=== PATIENT | male | born 1945 | race Two or more races ===

== ENCOUNTER 2018-02-28 07:54 | Outpatient (CLI) | payer OTHER | END 2018-02-28 08:01 | disposition home or self-care (01) | LOC: SONOGRAMA 07:54 | DX: B18.2 Chronic viral hepatitis C (principal) ==

== ENCOUNTER 2019-08-05 10:28 | Inpatient (IN) | payer OTHER ==
[~2019-08-05] VITALS: Ht 167.6 cm; Wt 81.2 kg
--- NOTE | 2019-08-05 11:32 | NUR ---
PTE REFIERE ULCERA EN PIE DERECHO SE JEOL S/V YS EJUBIAC EN AREA DE OBSERVACION
--- NOTE | 2019-08-05 14:02 | NUR ---
PACIENTE ALERTA Y ORIENTADO POR RUBÉN ESFERAS. MS.TAYLOR ORIENTA A PACIENTE SOBRE PROCEDIMIENTO Y TX, REFIERE ENTENDER. EXTRAE MUESTRAS DE LABORATORIO CON MEDIDAS ASEPTICAS Y ADMINISTRA MEDICAMENTOS KIM ORDEN MEDICA.
--- NOTE | 2019-08-05 16:14 | NUR ---
PT ALERTA Y ORIENTADO X3 ESFERAS SE RECIBE EN [place] CON BARANDAS ELEVADAS Y FRENOS COLOCADOS. HEPARIN LOCK E IVLFUIDS PATENTES. PT TOLERA TX. PENDIENTE VISITA DE INTERNISTA.
[2019-08-06] MEDS ORDERED: AMLODIPINE BESY10 MG PO (07:43)
[2019-08-06] MEDS ORDERED: GLIMEPIRIDE2 M1 PO (07:43)
[2019-08-06] MEDS ORDERED: ADULT LOW DOSE81 M1 PO (07:43)
[2019-08-06] MEDS ORDERED: ATORVASTATIN CA20 MG PO (07:43)
[2019-08-06] MEDS ORDERED: LOSARTAN POTAS100 MG PO (07:44)
[2019-08-06] MEDS ORDERED: TOPROL XL100 M1 PO (07:44)
[2019-08-06] MEDS ORDERED: JANUMET 50-1,01 EACH PO (07:44)
[2019-08-06] MEDS ORDERED: ANTIFUNGAL113 GM (07:44)
[2019-08-14] MEDS ORDERED: LOSARTAN POTAS100 MG PO (08:05)
[2019-08-14] MEDS ORDERED: ATORVASTATIN CA20 MG PO (08:05)
[2019-08-14] MEDS ORDERED: METFORMIN HCL500 MG PO (08:05)
[2019-08-14] MEDS ORDERED: ADULT LOW DOSE81 M1 PO (08:05)
== END 2019-08-14 11:20 | disposition home or self-care (01) | DRG 623 ==
LOC: ER 10:28 → MEDI 20:36 → SEC-K 20:36 → MEDI 22:15 → MEDJ 22:15 → SURH 08-08 21:47 → MEDJ 08-12 11:49 → MEDI 08-12 11:49
PROVIDERS: ADMIT Internal Medicine
PROC: 0JBQ0ZZ Excision of Right Foot Subcutaneous Tissue and Fascia, Open Approach (ICD-10-PCS; principal; 2019-08-06)
PROC: BQ3LZZZ Magnetic Resonance Imaging (MRI) of Right Foot (ICD-10-PCS; 2019-08-07)
PROC: 0JBQ0ZZ Excision of Right Foot Subcutaneous Tissue and Fascia, Open Approach (ICD-10-PCS; 2019-08-09)
PROC: 0JBQ0ZZ Excision of Right Foot Subcutaneous Tissue and Fascia, Open Approach (ICD-10-PCS; 2019-08-11)
PROC: B246ZZZ Ultrasonography of Right and Left Heart (ICD-10-PCS; 2019-08-13)
DX: E11.621 Type 2 diabetes mellitus with foot ulcer (principal); L03.115 Cellulitis of right lower limb; L97.513 Non-pressure chronic ulcer of other part of right foot with necrosis of muscle; B96.4 Proteus (mirabilis) (morganii) as the cause of diseases classified elsewhere; B96.89 Other specified bacterial agents as the cause of diseases classified elsewhere; B95.61 Methicillin susceptible Staphylococcus aureus infection as the cause of diseases classified elsewhere; I07.1 Rheumatic tricuspid insufficiency
CPT/HCPCS: 73221

== ENCOUNTER 2019-09-09 08:53 | Inpatient (IN) | payer OTHER ==
[~2019-09-09] VITALS: Ht 185.4 cm; Wt 79.4 kg
[~2019-09-09 08:53] MED LIST: ADULT LOW DOSE81 M1 PO; AMLODIPINE BESY10 MG PO; ANTIFUNGAL113 GM; ATORVASTATIN CA20 MG PO; GLIMEPIRIDE2 M1 PO; JANUMET 50-1,01 EACH PO; LOSARTAN POTAS100 MG PO; METFORMIN HCL500 MG PO; TOPROL XL100 M1 PO
== END 2019-09-17 13:51 | disposition home health service (06) | DRG 504 ==
LOC: ER 08:53 → MEDI 15:49
PROVIDERS: Specialist; ADMIT Internal Medicine
PROC: 0Y6P0Z0 Detachment at Right 1st Toe, Complete, Open Approach (ICD-10-PCS; principal; 2019-09-11 07:00)
DX: M86.171 Other acute osteomyelitis, right ankle and foot (principal); E11.52 Type 2 diabetes mellitus with diabetic peripheral angiopathy with gangrene; I96 Gangrene, not elsewhere classified; L97.413 Non-pressure chronic ulcer of right heel and midfoot with necrosis of muscle; L97.514 Non-pressure chronic ulcer of other part of right foot with necrosis of bone; B96.4 Proteus (mirabilis) (morganii) as the cause of diseases classified elsewhere; B95.61 Methicillin susceptible Staphylococcus aureus infection as the cause of diseases classified elsewhere; B95.2 Enterococcus as the cause of diseases classified elsewhere; I25.10 Atherosclerotic heart disease of native coronary artery without angina pectoris; I11.9 Hypertensive heart disease without heart failure; E11.621 Type 2 diabetes mellitus with foot ulcer; Z79.4 Long term (current) use of insulin

== ENCOUNTER → 2019-10-25 | Emergency (ER) | payer OTHER | END | disposition left against medical advice (07) | LOC: ER 11:23 | DX: Z53.20 Procedure and treatment not carried out because of patient's decision for unspecified reasons (principal) ==